=== PATIENT | female | born 1950 | race Caucasian/White ===

== ENCOUNTER 2019-10-18 08:49 | Outpatient (CLI) | payer MEDICARE, BC ==
--- NOTE | 2019-10-18 10:25 | MRI ---
MRI LUMBAR SPINE WITHOUT CONTRAST: Multiplanar, multisequential imaging of lumbar spine obtained. INDICATION: Spinal stenosis. Low back pain and bilateral hip pain. COMPARISON: Comparison is made to a prior MRI of the lumbar spine dated 03/04/2009. FINDINGS: Degenerative disk changes are seen throughout the lumbar spine most pronounced at the L2-3 level. Th e degenerative changes at L2-3 have significantly progressed when compared to 2009. There is no loss of disk space with prominent degenerative end plate changes at this level. There is a posterior lis thesis which has developed since the prior study measuring up to 6-7 mm. There are large anterior os teophytes which have developed since the prior study. There is edema within the L3 vertebra seen on STIR sequence with a superior end plate deformity at L3 which is new from the prior study. The edema suggests probably acute or subacute small node development with mild central compression. There are degenerative changes which have progressed at L3-4 and L4-5. Loss of disk space with degen erative disk changes at these levels are more pronounced today. Findings at each level are described below. At T12-L1, mild disk bulge without central canal or foraminal stenosis. At L1-2, mild disk bulge flattens the thecal sac. Facet hypertrophy. No significant central canal o r foraminal stenosis. At L2-3, degenerative disk changes and degenerative hypertrophic spurring as described above. 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 Associated diffuse disk bulge. Facet hypertrophy. There are posterior laminectomy changes at this site. These findings compress the thecal sac resulting moderate central canal stenosis. Bilateral foraminal stenosis more pronounced on the right due to asymmetric disk-os teophyte complex projecting into the foramina and projecting laterally on the right. At L3-4, there is also mild posterior listhesis which has developed since the prior study and there i s a broad-based disk bulge. Posterior laminectomy change. These findings compress the thecal sac re sulting in moderate central canal stenosis. Bilateral foraminal stenosis is also present at this lev el. At L4-5, mild diffuse disk bulge. Posterior laminectomy change. Facet hypertrophy. Mild central ca nal stenosis. Bilateral foraminal stenosis more pronounced on the left. At L5-S1, a mild anterolisthesis with diffuse disk bulge. Facet hypertrophy. Mild central canal ashwini nosis. Bilateral foraminal stenosis. IMPRESSION: 1. Significant degenerative disk and end plate change at L2-3 which have developed since the prior s tudy. A posterior listhesis is prominent at this level with central canal and foraminal stenosis not ed above. 2. Degenerative disk changes with central canal and foraminal stenosis also noted at L3-4, L4-5, and L5-S1 as described above. POS: SANCHEZ
== END 2019-10-18 08:50 | disposition home or self-care (01) ==
LOC: MRI 08:49
PROVIDERS: ATTEND Orthopaedic Surgery
DX: M48.07 Spinal stenosis, lumbosacral region (principal); M48.061 Spinal stenosis, lumbar region without neurogenic claudication; M51.36 Other intervertebral disc degeneration, lumbar region; M51.37 Other intervertebral disc degeneration, lumbosacral region; M43.16 Spondylolisthesis, lumbar region
CPT/HCPCS: 72148

== ENCOUNTER 2019-11-27 07:08 | Day surgery (SDC) | payer MEDICARE, BC ==
[2019-11-26 13:09] VITALS: BMI 30.1
--- NOTE | 2019-11-27 09:41 | CT ---
CT LUMBAR MYELOGRAM: INDICATIONS: 69-year-old female with low back pain COMPARISON: MR the lumbar spine without contrast dated October 18, 2019 TECHNIQUE: Multiple CT images were obtained of the lumbar spine following the intrathecal administration of an I sovue-200 Msolution. Please see the lumbar myelogram for details concerning the injection technique. Axial, coronal, and sagittal reformatted images were constructed from the raw data. 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 No definite hydronephrosis is evident. There is also incidental note of cholelithiasis. Spinal alignment: There is stable retrolisthesis of L2 on L3 Spinal instrumentation or postsurgical change: There is postoperative change of laminectomy from L2 t hrough L4. There is also a posterior dorsal column stimulator projecting into the epidural space at T11-T12 and projects beyond the [id number] of the CT evaluation. The visualized leads appear intac t to the generator that is placed over the posterior left gluteal region. At L5-S1, there is a broad-based disc osteophyte complex and facet hypertrophy in addition to loss of disc space height inducing severe bilateral neural foraminal narrowing which is stable to the prior MR examination.. At L4-5, there is a broad-based disc osteophyte complex with facet hypertrophy and loss of disc space height inducing moderate bilateral osseous neural foraminal narrowing which is stable to the prior exam. At L3-4, there is a broad-based disc osteophyte complex, asymmetric to the right inducing moderate to severe right and moderate left neural foraminal narrowing which is stable to the prior exam. At L2-3, there is an asymmetric to the right disc osteophyte complex with vacuum disc phenomenon and facet joint degenerative change inducing moderate left and severe right neural foraminal narrowing. At L1-L2, there is a mild broad-based bulge without appreciable central canal or neural foraminal harjit rowing. At T12-L1, there is no appreciable central canal or neuroforaminal narrowing. IMPRESSION: 1. Stable severe multilevel spondylosis of the lumbar spine with prominent multilevel neural foramin al narrowing involving L2-3 through L5-S1. 2. Postoperative change consistent with laminectomies from L2 through L4 and a dorsal column stimulat or lead placement. 3. Cholelithiasis
--- NOTE | 2019-11-27 09:42 | RAD ---
LUMBAR MYELOGRAM: INDICATION: Low back pain TECHNIQUE: Informed consent was obtained. Preprocedure it compliance manager images were performed for guidance purposes. Site overlying the L3-4interlaminar space was marked. The site was prepped and draped in the usual st erile fashion. Buffered 1% lidocaine was administered to the overlying subcutaneous tissues. Under fluoroscopic guidance, a 22-gauge spinal needle was guided down into the thecal sac. There was spontaneous return of normal appearing CSF fluid. Following this 12 mL of Isovue M was injected within the thecal sac. There was fluoroscopic visualiza tion of internal nerve roots confirming intrathecal location of needle placement. The inner stylette was replaced within the needle and the needle removed. Pressure was held at the bi opsy site until hemostasis was obtained. The biopsy site was then cleansed and bandage. The patient tolerated the injection without difficulty. Total fluoroscopic time was 0.5 minutes. Total exposure was 309.2microGy/m2. FINDINGS: Severe multilevel spondylosis lumbar spine. Partial visualization of a dorsal column stimulator. IMPRESSION: Successful lumbar myelogram
[2019-11-27] MEDS ORDERED: Prevnar 13-Val Conj/PF 0.5 ML SYRINGE IM ONE (13:30)
[2019-11-27] MEDS ORDERED: FLU VACC TS2019-20(65YR UP)/PF 180 MCG/0.5 ML SYRINGE IM ONE (13:45)
== END 2019-11-27 10:20 | disposition home or self-care (01) ==
LOC: RAD 07:08
PROVIDERS: ATTEND Radiology Diagnostic Radiology
DX: M47.816 Spondylosis without myelopathy or radiculopathy, lumbar region (principal); E66.9 Obesity, unspecified; Z68.30 Body mass index [BMI] 30.0-30.9, adult; Z88.8 Allergy status to other drugs, medicaments and biological substances
CPT/HCPCS: 62304; 72132